=== PATIENT | female | born 1960 | race Caucasian/White ===

== ENCOUNTER 2017-03-31 10:00 | Day surgery (SDC) | payer BC ==
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
[~2017-03-31 10:00] MED LIST: ACETAMINOPHEN 1,000 MG/100 ML BTL IV ONE; CEFAZOLIN 2 Gram 2 GM/50 ML BAG IVPB ONE; FAMOTIDINE 20MG TABLET PO ONE; MECLIZINE 25 MG TABLET PO ONE; METOCLOPRAMIDE 10 MG TABLET PO ONE; VANCOMYCIN HCL 1,000 MG in DEXTROSE 5 % IN WATER 250 ML IVPB ONE
[2017-03-31] MEDS ORDERED: FENTANYL PF 100MCG/2ML VIAL IV ONE (10:01)
[2017-03-31] MEDS ORDERED: BUPIVACAINE 0.75% W/EPI MPF 30ML VIAL IVP ONE (10:01)
[2017-03-31] MEDS ORDERED: FLUMAZENIL 1MG/10ML VIAL IV ONE (10:01)
[2017-03-31] MEDS ORDERED: PROPOFOL 10 MG/ML VIAL IV ONE (10:01)
[2017-03-31] MEDS ORDERED: LIDOCAINE 1% W/EPI 1:200,000 MPF 30ML SQ ONE (10:01)
[2017-03-31] MEDS ORDERED: LIDOCAINE 2% MDV (20MG/ML) 20ML VIAL IV ONE (10:01)
[2017-03-31] MEDS ORDERED: CEFAZOLIN 1G VIAL IM ONE (10:01)
[2017-03-31] MEDS ORDERED: MIDAZOLAM HCL 2MG/2ML VIAL IV ONE (10:01)
[2017-03-31] MEDS ORDERED: HYDROMORPHONE HCL 2 MG/ML VIAL IM PRN (13:07)
[2017-03-31] MEDS ORDERED: METOCLOPRAMIDE 10 MG TABLET PO PRN (13:07)
[2017-03-31] MEDS ORDERED: ACETAMINOPHEN 325 MG TAB PO PRN ×2 (13:07)
[2017-03-31] MEDS ORDERED: AL HYDROX/MAG HYDROX 30ML UD PO PRN (13:07)
[2017-03-31] MEDS ORDERED: HYDROMORPHONE HCL 1 MG/ML SYRINGE IM PRN (13:07)
[2017-03-31] MEDS ORDERED: TEMAZEPAM 15 MG CAPSULE PO PRN ×2 (13:07)
[2017-03-31] MEDS ORDERED: DIPHENHYDRAMINE HCL IV 50 MG/ML VIAL IVP PRN ×2 (13:07)
[2017-03-31] MEDS ORDERED: METOCLOPRAMIDE HCL 10 MG/2 ML VIAL IVP PRN (13:07)
[2017-03-31] MEDS ORDERED: DIPHENHYDRAMINE HCL 25 MG CAPSULE PO PRN ×2 (13:07)
[2017-03-31] MEDS ORDERED: SENNOSIDES/DOCUSATE SODIUM UD CAPSULE PO PRN ×2 (13:07)
[2017-03-31] MEDS ORDERED: OXYCODONE/APAP 10MG-325MG TABLET PO PRN (13:07)
[2017-03-31] MEDS: OXYCODONE SR 20 MG TAB.ER.12H PO SCH ×2 (14:46→23:01)
[2017-03-31] MEDS: CEFAZOLIN 2 Gram 2 GM/50 ML BAG IVPB SCH (18:17)
[2017-03-31] MEDS: 0.9 % SODIUM CHLORIDE 10ML SYR IVP SCH (21:46)
[2017-04-01] MEDS: CEFAZOLIN 2 Gram 2 GM/50 ML BAG IVPB SCH ×2 (02:33→10:03)
[2017-04-01] MEDS: OXYCODONE SR 20 MG TAB.ER.12H PO SCH (07:17)
--- NOTE | 2017-04-01 08:27 | RADIOLOGY REPORT ---
EXAM: THORACOLUMBAR SPINE, SINGLE VIEW HISTORY: SPINAL STIMULATOR PLACEMENT. TECHNIQUE: A single AP portable supine view of the spine including the lower two-thirds of the thoracic spine and the entire lumbar spine is obtained. Comparison: Same day intraoperative radiographs. FINDINGS: A dual lead interspinal stimulator is in place appearing to enter the spinal canal near the L1 level. The lead tips are at the level of the T9 vertebra. The leads extend inferiorly and rightward with a stimulator generator positioned in the right gluteal region. An IVC filter is in place and post cholecystectomy changes are present. There are mild degenerative changes scattered throughout the visualized spine with minimal levocurvature of the mid thoracic spine. No destructive bone lesion. IMPRESSION: DUAL LEAD INTERSPINAL STIMULATOR IN PLACE, DISCUSSED ABOVE. JOB NUMBER: [id number] MTDD
[2017-04-01] MEDS: OXYCODONE/APAP 10MG-325MG TABLET PO PRN ×2 (08:51→14:13)
[2017-04-01] MEDS: 0.9 % SODIUM CHLORIDE 10ML SYR IVP SCH (10:04)
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
== END 2017-04-01 14:40 | disposition home or self-care (01) ==
LOC: SUR 10:00 → MEDSURG 13:00 → SUR 04-01 14:40
PROVIDERS: ATTEND Pain Medicine Interventional Pain Medicine
DX: M96.1 Postlaminectomy syndrome, not elsewhere classified (principal); M54.16 Radiculopathy, lumbar region; M54.17 Radiculopathy, lumbosacral region
CPT/HCPCS: 85002; 72020; 63685; 63650 ×2; 00300; J3010; J0690 ×2; J7060

== ENCOUNTER 2018-11-16 10:36 | Day surgery (SDC) | payer BC ==
--- NOTE | 2018-11-16 07:34 | History and Physical - [facility] ---
CHIEF COMPLAINT/HISTORY OF CHIEF COMPLAINT: This patient presents with a history of an intractable pain pattern for which a spinal cord stimulator implant with internal generator was performed on 03/31/17. Although throughout this period of time she appears to have done well a number of different issues have resulted in this patient's request for removal of the device. She is here for removal of stimulator and generator. PAST MEDICAL HISTORY: Chronic headaches, hepatitis, degenerative arthritis, depression, and difficulty sleeping. PAST SURGICAL HISTORY: Lumbar spinal surgery and stimulator implant. MEDICATIONS ON ADMISSION: List to be provided. ALLERGIES: BIAXIN AND NICKEL. FAMILY/PSYCHOSOCIAL HISTORY: Social history - Caffeine. Family history - Coronary artery disease. SYSTEMS REVIEW: The patient seems appropriate in no acute distress. PHYSICAL EXAMINATION: No height and weight. Vital signs are not available. HEENT: Within normal limits. LUNGS: Clear. HEART: Rapid and regular. ABDOMEN: Nontender. MUSCULOSKELETAL: Examination of the musculoskeletal system shows the incision for the stimulator approximating T12-L1. The generator is identified at the right posterior gluteal margin. The sites are intact. The underlying pain pattern is low back with a bilateral lower extremity extension. NEUROLOGIC: Cranial nerves are intact. IMPRESSION: 1. POST LUMBAR LAMINECTOMY SYNDROME, ICD-10 CODE M96.1 WITH LUMBAR RADICULOPATHY, ICD-10 CODE M54.16 AND M54.17. 2. IMPLANTED SPINAL CORD STIMULATOR AND INTERNAL GENERATOR NONFUNCTIONAL. PLAN: The patient is here on an outpatient basis for removal of the device and generator. The risks, side effect, and complications have been reviewed and discussed. JOB NUMBER: [id number] [facility]
[~2018-11-16 10:36] MED LIST changes: -ACETAMINOPHEN 1,000 MG/100 ML BTL IV ONE; +ACETAMINOPHEN 1,000 MG/100 ML BTL IVPB ONE; +VANCOMYCIN 1GM/200ML PREMIX 1 GM/200 ML PIGGYBACK IVPB ONE; -VANCOMYCIN HCL 1,000 MG in DEXTROSE 5 % IN WATER 250 ML IVPB ONE
[2018-11-16] MEDS ORDERED: MIDAZOLAM HCL 2MG/2ML VIAL IV ONE (10:37)
[2018-11-16] MEDS ORDERED: LIDOCAINE 2% MDV (20MG/ML) 20ML VIAL IV ONE (10:37)
[2018-11-16] MEDS ORDERED: 0.9 % SODIUM CHLORIDE 10 ML VIAL IVP ONE (10:37)
[2018-11-16] MEDS ORDERED: PROPOFOL 10 MG/ML VIAL IV ONE (10:37)
[2018-11-16] MEDS ORDERED: FENTANYL PF 100MCG/2ML VIAL IV ONE (10:37)
[2018-11-16] MEDS ORDERED: *PACU ONLY* KETAMINE HCL 10 MG/ML (20ML) VIAL IV ONE (10:37)
[2018-11-16] MEDS ORDERED: CEFAZOLIN 1G VIAL IVP ONE (10:37)
[2018-11-16] MEDS ORDERED: RINGERS SOLUTION,LACTATED 1,000 ML IV ONE (11:30)
[2018-11-16] MEDS ORDERED: BUPIVACAINE 0.5% W/EPI MPF 30 ML VIAL SQ ONE (12:34)
[2018-11-16] MEDS ORDERED: LIDOCAINE 1% W/EPI 1:100,000 MDV 20 ML VIAL SQ ONE (12:34)
[2018-11-16] MEDS ORDERED: HYDROCODONE/APAP 7.5/325MG TABLET PO ONE (13:04)
--- NOTE | 2018-11-17 08:20 | Operative Note ---
DATE OF SURGERY: 11/16/2018 PREOPERATIVE DIAGNOSES: 1. Post lumbar laminectomy syndrome, ICD10 code M96.1, with lumbar radiculopathy, ICD10 code M54.16 and M54.17. 2. Implanted spinal cord stimulator internal generator nonfunctional. OPERATION: 1. Fluoroscopic-guided incision, subsequent, and removal of 2 spinal cord stimulators implanted. 2. Incision, subcutaneous dissection, and removal of internal pulse generator implanted. SURGEON: Rayray Helm, DO ANESTHESIA: Local with sedation. ANESTHESIA PROVIDER: Gregg Rosenthal INDICATION: This patient presents with a history of intractable post lumbar laminectomy radiculopathy. Due to the failure of therapy, roughly 2 years ago a spinal cord stimulator was implanted. Although initially it appeared to be working quite well, there were a number of other issues for which the patient has requested removal of the device. PROCEDURE: Intravenous line, vital sign monitoring, IV sedation by Anesthesia. Patient positioned prone. Sterile prep, sterile technique. Under imaging, midline incision for the leads infiltrated with local. Incision made, subcutaneous dissection was conducted to the leads, anchors, and suture. Suture removed. Anchors removed. Two 16-electrode leads were removed intact. Electrodes accounted for. At the right posterior gluteal margin generator pouch, skin infiltrated, incision made, and subcutaneous dissection was conducted to the pouch. The pouch was opened. Generator removed. Connections to leads removed. Antibiotic irrigation and Bovie for hemostasis at all sites. Both incisions were then closed using Stratafix suture 2-0 fascia, 3-0 skin. Dermabond closure approximating the edges of both wounds. She was transported to the recovery room stable. There were no side effects from the procedure or sedation. DISCHARGE INSTRUCTIONS: 1. Sites to remain clean and dry. No showering or bathing in any way. Although the Dermabond will allow showering, she should not sit in water. 2. Standard medication resumed including the antibiotic Levaquin 500 mg once a day for 14 days. A 7-day prescription of [place] has been provided, a maximum at 5 a day. 3. All other instructions provided, numbers to contact if problems given. She will be evaluated in the office in 7-10 days. Office to contact to set up the appointment in 12-24 hours. Should there be any problems before that point in time, she can contact the clinic or go to the local emergency room. [place]
== END 2018-11-16 13:30 | disposition home or self-care (01) ==
LOC: SUR 10:36
PROVIDERS: ATTEND Pain Medicine Interventional Pain Medicine
DX: M96.1 Postlaminectomy syndrome, not elsewhere classified (principal); M54.16 Radiculopathy, lumbar region; M54.17 Radiculopathy, lumbosacral region; T85.193A Other mechanical complication of implanted electronic neurostimulator, generator, initial encounter; G35 Multiple sclerosis; F43.10 Post-traumatic stress disorder, unspecified; Z90.2 Acquired absence of lung [part of]
CPT/HCPCS: 63662; 63688; 00620; J3010; J3370; J0690; J7120